=== PATIENT | female | born 1950 | race Asian ===

== ENCOUNTER 2020-07-06 13:00 | Emergency (ER) | payer OTHER ==
[~2020-07-06] VITALS: Ht 152.4 cm; Wt 61.2 kg
[2020-07-06 13:35] VITALS: Ht 152.4 cm; Wt 61.2 kg
[2020-07-06 16:12] VITALS: BP 139/71
== END 2020-07-06 16:12 | disposition home or self-care (01) ==
LOC: ED 13:00
DX: S52.501A Unspecified fracture of the lower end of right radius, initial encounter for closed fracture (principal); S52.611A Displaced fracture of right ulna styloid process, initial encounter for closed fracture; W01.0XXA Fall on same level from slipping, tripping and stumbling without subsequent striking against object, initial encounter; Y93.89 Activity, other specified; Y92.89 Other specified places as the place of occurrence of the external cause; Y99.8 Other external cause status
CPT/HCPCS: A4570; J3010; Q0092